=== PATIENT | male | born 1970 | race Caucasian/White ===

== ENCOUNTER 2025-09-06 17:52 | Emergency (ER) | payer OTHER ==
[~2025-09-06] VITALS: Ht 195.6 cm; Wt 140.6 kg
[2025-09-06 17:54] VITALS: BP 158/98; PULSE 69; RESP 16; TEMP 97.8
--- NOTE | 2025-09-06 18:09 | ERN ---
ED Note History of Present Illness Stated Complaint: LEFT HAND, LEFT KNEE, RT SHOULDER PAIN Chief Complaint: Mechanical Fall Time Seen by MD: 17:54 Time Seen by Midlevel: 17:54 Dictation: The patient is a 55-year-old male with a history of back surgery, appendectomy who presents to the emergency department with complaints of right shoulder pain, left hand pain, left knee pain after an accidental fall on Saturday. Patient reports he has problems with the his left knee which he has had since the and it is debilitated and reports that occasionally his knee gives up on him which is what happened when he fell on Saturday. Patient denies any head trauma, denies any LOC, denies any neck pain back pain abdominal pain chest pain or any other injuries from the fall. Patient has been ambulating Allergies: Coded Allergies: Penicillins (Unverified Allergy, Unknown, 09/06/25) Home Meds Active Scripts Meloxicam (Meloxicam) 15 Mg Tablet, 1 TAB PO DAILY for 10 Days, #10 TAB 0 Refills Prov:RYAN RICHARDSON [employer] 09/06/25 Past Medical History Past Medical History: Hypertension Surgical History: Appendectomy Surgical History Other: BACK SX Review of System Dictation Constitutional: Negative for fever,chills, and weight loss Eyes: Negative for injury, pain,redness, and discharge ENT: Negative for injury,pain or swelling Cardiovascular: Negative for chest pain, palpitations, and edema Respiratory: Negative for shortness of breath, cough, and wheezing, Abdomen/GI: Negative for abdominal pain, nausea, vomiting, diarrhea, and constipation Back: Negative for injury and pain : Negative for injury, bleeding and discharge MS/Extremity: Positive for right shoulder pain, left knee pain, left hand pain Skin: Negative for rash, and discoloration Neuro: Negative for headache, weakness, numbness, tingling, and seizure Psych: Negative for suicide ideation, homicidal ideation, and hallucinations Initial Vital Sign VS Vital Signs Date Time Temp Pulse Resp B/P (MAP) Pulse Ox O2 Delivery O2 Flow Rate FiO2 09/06/25 17:54 97.9 69 16 158/98 99 Room Air 0 Physical Exam Dictation Vital Signs reviewed General Appearance: Alert, oriented x 3, no acute distress, well developed, nourished. Head and Face: non-traumatic. Eyes: PERRL, pink conjunctivas, eyelid no trauma, anterior chamber with arcus senilis. Ears: Pinnas intact and no signs of trauma or erythema ear canals clear and no discharge TM no erythema Nose: No discharge, no bleeding. Oropharynx: Mouth normal, tongue pink. pharynx clear,no erythema, tonsils no exudates, no abscesses noted, mucous membrane moist Neck: Supple, non-tender, no thyromegaly, no masses, no JVD, no bruits Breast:Deferred Chest:No tenderness, no crepitus, no paradoxical movement, no retractions Lungs:Clear, well-ventilated, symmetric, no rales, no wheezing, no rhonchi, no stridor, good breath sounds bilaterally Heart: Regular rate, regular rhythm, no murmur, no gallops Vascular: no peripheral edema, radial pulses 3+ bilaterally, dorsalis pedis pulses 3+ bilaterally Abdomen: Soft, positive bowel sounds, nondistended, no guarding, nontender, no rebound, no masses no hepatomegaly, no splenomegaly, no Brown's sign, no hernias. Rectal: Deferred Genital: Deferred Neurological: Normal speech, motor function intact, sensory function intact Musculoskeletal: Neck nontender, full range of motion, back nontender, full range of motion, Extremities: nontender, full range of motion , swelling to left knee, no open w ounds, full range of motion, cap refill less than 2 seconds, tenderness to left knee, no significant swelling, no erythema, no open wounds, limited range of motion to right shoulder no obvious deformities Skin: Color pink, dry, no turgor, no rash, no lacerations, no abrasions, no contusions. Lymphatic: Deferred Results (Laboratory/Radiology) Laboratory/Radiology REASON: pain ORDERING PHYSICIAN: RYAN RICHARDSON [employer] PROCEDURE: SHOL 2V RT - SHOULDER COMP 2+VWS RT EXAM: CR right Shoulder, 2 views. CLINICAL HISTORY: pain COMPARISON: None provided. FINDINGS: BONES: No acute fracture or aggressively appearing osseous lesion. JOINTS: No dislocation. The joint spaces are normal. SOFT TISSUES: The soft tissues are unremarkable. IMPRESSION: No acute abnormality was evident on examination of the right shoulder. No acute fracture or dislocation. /[place] PATIENT: NATALY HOFFMAN MR#: [id number] : 1970 SEX: M AGE: 55 LOCATION: [facility] ORDER 04 STATUS: REG ER [facility] REPORT#: [id number] SERVICE 03 REASON: pain ORDERING PHYSICIAN: RYAN RICHARDSON [employer] PROCEDURE: HAND 3V LT - HAND 3+VWS LT EXAM: CR left Hand, 3 View. CLINICAL HISTORY: pain COMPARISON: None provided. FINDINGS: BONES: No acute osseous pathology evident. JOINTS: No evidence of dislocation. The joint spaces are normal. SOFT TISSUES: The soft tissues appear within normal limits. No radiopaque foreign body is seen. IMPRESSION: No acute pathology evident. No acute fracture or dislocation. /[place] Labs Reviewed?: Yes ED Course ED Course Orders Procedure Category Date Status Time Shoulder Comp 2+Vws Rt RAD 09/06/25 Resulted 18:04 Knee 3vws Lt RAD 09/06/25 Taken 18:04 Hand 3+Vws Lt RAD 09/06/25 Resulted 18:04 Ketorolac 60mg/2ml PHA 09/06/25 Complete (Toradol 60mg/2ml) 18:30 Sling GENO 09/06/25 Complete 20:07 Knee Immobilizer GENO 09/06/25 Complete 20:07 Current Medications Medications (Trade) Dose Ordered Sig/Ric Route PRN Reason Start Time Stop Time Status Last Admin Dose Admin Ketorolac Tromethamine (toRADol 60MG/ 2ML) 60 mg ONCE IM 09/06/25 18:30 09/06/25 20:33 DC 09/06/25 19:17 Vital Signs Date Time Temp Pulse Resp B/P (MAP) Pulse Ox O2 Delivery O2 Flow Rate FiO2 09/06/25 17:54 97.9 69 16 158/98 99 Room Air 0 Medical Decision Making MDM The patient is a 55-year-old male with a history of back surgery, appendectomy who presents to the emergency department with complaints of right shoulder pain, left hand pain, left knee pain after an accidental fall on Saturday. Patient reports he has problems with the his left knee which he has had since the and it is debilitated and reports that occasionally his knee gives up on him which is what happened when he fell on Saturday. Patient denies any head trauma, denies any LOC, denies any neck pain back pain abdominal pain chest pain or any other injuries from the fall. Patient has been ambulating No obvious fracture seen on x-rays. Patient is ambulatory, neurovascularly in tact. Patient will be discharged and referred to ortho. Differential diagnosis: Knee sprain, knee dislocation, and fracture, shoulder contusion, shoulder dislocation Need for hospitalization: Patient does not meet criteria for hospitalization. There are no social concerns with this patient. DX & DISP Disposition: Discharge Departure Impression: Primary Impression: Fall Additional Impressions: Sprain of shoulder, right, Knee contusion, Sprain and strain of left hand Condition: Stable Scripts Meloxicam (Meloxicam) 15 Mg Tablet 1 TAB PO DAILY for 10 Days, #10 TAB 0 Refills Prov: RICHARDSON,RYAN DUNNP 09/06/25 Additional Instructions: Your x-rays did not show any obvious fractures. Please follow up with the ortho. Follow up with your primary doctor in 1-2 days. If anything worsens please return to ER. FOLLOW-UP WITH PRIMARY CARE PROVIDER IN 1 TO 2 DAYS. TAKE MEDICATIONS DIRECTED HERE IN THE EMERGENCY ROOM. OKAY TO CONTINUE HOME MEDICATIONS UNLESS OTHERWISE DISCUSSED DURING YOUR VISIT IN THE EMERGENCY ROOM TODAY. RETURN TO YOUR NEAREST EMERGENCY ROOM IF SYMPTOMS WORSEN OR IF THERE IS NO IMPROVEMENT. CALL 911 IF YOU NEED IMMEDIATE ASSISTANCE. TAKE TYLENOL [id number] NEEDED AND IF NO CONTRAINDICATIONS ARE PRESENT. INCREASE ORAL HYDRATION. A WOUND CULTURE OR URINE CULTURE WAS ORDERED HERE IN THE EMERGENCY ROOM DEPARTMENT PLEASE FOLLOW-UP WITH PRIMARY CARE PROVIDER AND ADVISE THEM TO GET REPEAT PORTS FROM OUR FACILITY. IF YOU HAD ANY YANIQUE WRAP/SPLINTS THAT WERE APPLIED HERE, PLEASE DO NOT REMOVE THEM UNTIL YOU SEE YOUR PRIMARY CARE OR SPECIALTY. Referrals: BARBARA RAMOS MD Time of Disposition: 20:10 I have reviewed the case, and I agree with, Diagnosis and Plan RYAN RICHARDSON [facility] Sep 06, 2025 18:08
--- NOTE | 2025-09-06 20:09 | HMCIMG ---
EXAM: CR right Shoulder, 2 views. CLINICAL HISTORY: pain COMPARISON: None provided. FINDINGS: BONES: No acute fracture or aggressively appearing osseous lesion. JOINTS: No dislocation. The joint spaces are normal. SOFT TISSUES: The soft tissues are unremarkable. IMPRESSION: No acute abnormality was evident on examination of the right shoulder. No acute fracture or dislocation. /[place]
[2025-09-06] MEDS ORDERED: MELO-108 PO (20:10)
--- NOTE | 2025-09-06 20:11 | HMCIMG ---
EXAM: CR left Hand, 3 View. CLINICAL HISTORY: pain COMPARISON: None provided. FINDINGS: BONES: No acute osseous pathology evident. JOINTS: No evidence of dislocation. The joint spaces are normal. SOFT TISSUES: The soft tissues appear within normal limits. No radiopaque foreign body is seen. IMPRESSION: No acute pathology evident. No acute fracture or dislocation. /[place]
--- NOTE | 2025-09-06 20:33 | NUR ---
KNEE IMMOBILIZER APPLIED TO L KNEE, PATIENT TOLERTED WELL
== END 2025-09-06 20:33 | disposition home or self-care (01) ==
LOC: EDH 17:52
DX: M25.511 Pain in right shoulder (principal); I10 Essential (primary) hypertension; S46.911A Strain of unspecified muscle, fascia and tendon at shoulder and upper arm level, right arm, initial encounter; S66.912A Strain of unspecified muscle, fascia and tendon at wrist and hand level, left hand, initial encounter; S80.01XA Contusion of right knee, initial encounter; Z79.1 Long term (current) use of non-steroidal anti-inflammatories (NSAID); Z88.0 Allergy status to penicillin; Z90.49 Acquired absence of other specified parts of digestive tract; W19.XXXA Unspecified fall, initial encounter; Y93.89 Activity, other specified; Y92.89 Other specified places as the place of occurrence of the external cause; Y99.8 Other external cause status
CPT/HCPCS: 99284; 29505; 73130; 73562; 73030; 96372; J1885